=== PATIENT | female | born 1980 | race Two or more races ===

== ENCOUNTER 2019-11-28 09:00 | Inpatient (IN) | payer OTHER ==
[2019-11-26 17:52] LABS: APPEARANCE,URINE CLEAR; BILIRUBIN, URINE NEGATIVE (NEGATIVE); COLOR,URINE PALE YELLOW; GLUCOSE, URINE (UA) NEGATIVE (NEGATIVE); KETONES,URINE NEGATIVE (NEGATIVE); LEUKOCYTE ESTERASE ,URINE NEGATIVE (NEGATIVE); NITRITE,URINE NEGATIVE (NEGATIVE); PH,URINE 6 (4.5-8.0); PROTEIN,URINE NEGATIVE (NEGATIVE); UROBILINOGEN,URINE NORMAL MG/DL (0.0-1.0)
[~2019-11-28] VITALS: Ht 160 cm; Wt 95.3 kg
[2019-11-28] MEDS ORDERED: AMOXICILLI250 MG/5 M ORAL (14:47)
[2019-11-28] MEDS ORDERED: IBUPROFEN600 MG ORAL (14:48)
[2019-11-29] VITALS (15 sets, daily range): BP systolic 107–149; BP diastolic 57–91
[2019-11-29] MEDS ORDERED: ceFAZolin sod 2 GM in D5W 110 ML IVPB ONE (07:00)
--- NOTE | 2019-11-29 07:27 | Pre-Procedure Note/Attestation ---
Pre-Procedure Note/Attestation Complete Prior to Procedure Planned Procedure: not applicable Procedure Narrative: Right microdiscectomy hemilaminotomy Lumbar 45, 5S1 Attestation I attest that I discussed the nature of the procedure; its benefits; risks and complications; and alternatives (and the risks and benefits of such alternatives ), prior to the procedure, with the patient (or the patient's legal dental detail representative). I attest that, if there was a reasonable possibility of needing a blood transfusion, the patient (or the patient's legal dental detail representative) was given the [facility] standardized written summary, pursuant to the [place] Vern Blood Safety Act ([place] Health and Safety Code # 1645, as amended). I attest that I re-evaluated the patient just prior to the surgery and that there has been no change in the patient's H&P, except as documented below: Moises Brown MD Nov 29, 2019 07:27
[2019-11-29] MEDS ORDERED: NS w/KCl 20mEq 1000ml 1,000 ML IV SCH (07:40)
--- NOTE | 2019-11-29 07:40 | Brief Operative Note ---
Immediate Post Operative Note Operative Note Chief Complaint: back pain and radiculopathy Pre-op Diagnosis: hnp L45 5S1 Procedure: hemilaminotomy foraminotomy micrdiscectomy of Lumbar 45 5S1 Post-op Diagnosis: same as pre-op Findings: consistent w/pre-op dx studies Surgeon: Stephanie Instructor Painting: Frank Anesthesiologist: Pro Anesthesia: general Specimen: none Complications: none Condition: stable Fluids: IVF Estimated Blood Loss: minimal Drains: none Implant(s) used?: No Moises Brown MD Nov 29, 2019 07:40
[2019-11-29] MEDS ORDERED: Metoclopramide 10mg/2ml Inj IVP PRN ×2 (07:45→10:00)
[2019-11-29] MEDS ORDERED: HYDROcodone/Acetamin 7.5/325 tab ORAL PRN ×2 (07:45→10:00)
[2019-11-29] MEDS ORDERED: Morphine Sulfate 2mg/ml Inj(IV/IM USE ONLY) IV PRN ×2 (07:45→15:00)
[2019-11-29] MEDS ORDERED: HYDROmorphone 1mg/ml Carpuject IVP PRN (07:45)
[2019-11-29] MEDS ORDERED: Naloxone 0.4mg/ml Inj IVP PRN (07:45)
[2019-11-29] MEDS ORDERED: Milk of Magnesia 30ml Ud ORAL PRN (07:45)
[2019-11-29] MEDS ORDERED: HYDROcodone/Acetamin 5/325 tab ORAL PRN ×2 (07:45→10:00)
[2019-11-29] MEDS ORDERED: Chloraseptic Spray 20mL Bottle ORAL PRN (07:45)
[2019-11-29] MEDS ORDERED: Morphine Sulfate 4mg/ml Inj (IV USE ONLY) IV PRN (07:45)
[2019-11-29] MEDS: Docusate 100mg cap ORAL SCH ×2 (09:00→18:19)
[2019-11-29] MEDS ORDERED: LR 1000ml 1,000 ML IVLG SCH (09:57)
[2019-11-29] MEDS ORDERED: Sterile Water Irrig 1000ml IRRIG ONE (10:00)
[2019-11-29] MEDS ORDERED: LORazepam Inj 2mg/ml 1ml IV PRN (10:00)
[2019-11-29] MEDS ORDERED: Labetalol 5mg/ml 20ml vial IV PRN (10:00)
[2019-11-29] MEDS ORDERED: NS Irrig 1000ml ONE (10:00)
[2019-11-29] MEDS ORDERED: Neostigmine 1mg/ml 10ml Inj ONE (10:00)
[2019-11-29] MEDS ORDERED: LR 1000ml ONE (10:00)
[2019-11-29] MEDS ORDERED: Midazolam 2mg/2ml Inj IVP PRN (10:00)
[2019-11-29] MEDS ORDERED: Atropine Sulfate 0.4mg/ml inj IVP PRN (10:00)
[2019-11-29] MEDS ORDERED: oxyCODONE HCL/Acetaminophen 5/325mg ORAL PRN (10:00)
[2019-11-29] MEDS ORDERED: fentaNYL 100 mcg/2 mL IV PRN (10:00)
[2019-11-29] MEDS ORDERED: DiphenhydrAMINE 50mg/ml Inj IVP PRN (10:00)
[2019-11-29] MEDS ORDERED: Ketorolac 30mg Inj IV PRN ×2 (10:00)
[2019-11-29] MEDS ORDERED: Meperidine 25mg/0.5ml Inj (FOR RIGORS ONLY) IV PRN (10:00)
[2019-11-29] MEDS ORDERED: Hydromorphone 0.5mg/0.5ml inj IVP PRN (10:00)
[2019-11-29] MEDS ORDERED: Acetaminophen (Non formulary) 100 ML IV ONE (10:00)
[2019-11-29] MEDS ORDERED: Propofol 1,000mg/ 100ml btl IV ONE (10:00)
--- NOTE | 2019-11-29 10:04 | Anethesia Preoperative Eval ---
Anesthesia Pre-op PMH/ROS General Date of Evaluation: Nov 29, 2019 Time of Evaluation: 10:02 Anesthesiologist: Terrence ASA Score: ASA 2 Mallampati Score Class I : Soft palate, uvula, fauces, pillars visible Class II: Soft palate, uvula, fauces visible Class III: Soft palate, base of uvula visible Class IV: Only hard plate visible Mallampati Classification: Class II Surgeon: Stephanie Diagnosis: Back Pain Surgical Procedure: R Microdiscectomy, Hemilaminotomy L4-5, S1 Anesthesia History: none Family History: no anesthesia problems Allergies: Coded Allergies: No Known Allergies (Unverified , 11/29/19) Medications: see eMAR Patient NPO?: Yes NPO Date: Nov 28, 2019 NPO Time: 2099 Past Medical History Cardiovascular: Reports: HTN Neurologic/Psychiatric: Reports: depression/anxiety Other: obesity - BMI 39 PSxH Narrative: Tubal Ligation, Abdominoplasty Anesthesia Pre-op Phys. Exam Physician Exam Last Vital Signs Date Time Temp Pulse Resp B/P (MAP) Pulse Ox O2 Delivery O2 Flow Rate FiO2 11/29/19 08:06 97.7 66 18 107/75 (86) 98 11/29/19 08:04 Room Air Constitutional: NAD Neurologic: CN 2-12 intact Cardiovascular: RRR Respiratory: CTA Gastrointestinal: S/NT/ND Airway Exam Mallampati Score: Class II MO: full ROM: limited Teeth: missing, intact Anesthesia Pre-op A/P Labs Urine Test Test 11/29/19 07:35 Urine HCG, Qualitative Negative (NEGATIVE) Risk Assessment & Plan Assessment: ASA 2 Plan: GA, SED, GlideScope Go Status Change Before Surgery: No Pre-Antibiotics Dru Grams Ancef IV Given Within 1 Hr of Incision: Yes Time Given: 10:31 Wang Ocampo MD Nov 29, 2019 10:04
--- NOTE | 2019-11-29 10:04 | Immediate Post-Op Evaluation ---
Immediate Post-Op Evalulation Immediate Post-Op Evalulation Procedure: R Microdiscectomy, Hemilaminotomy L4-5, S1 Date of Evaluation: Nov 29, 2019 Time of Evaluation: 12:49 IV Fluids: 1000LR Blood Products: 0 Estimated Blood Loss: 40 Urinary Output: 0 Blood Pressure Systolic: 141 Blood Pressure Diastolic: 91 Pulse Rate: 88 Respiratory Rate: 16 O2 Sat by Pulse Oximetry: 100 Temperature (Fahrenheit): 97.1 Pain Score (1-10): 2 Nausea: No Vomiting: No Complications 0 Patient Status: awake, reacts, patent, extubated, none Hydration Status: adequate Dru Grams Ancef IV Given Within 1 Hr of Incision: Yes Time Given: 10:31 Wang Ocampo MD Nov 29, 2019 10:04
[2019-11-29] MEDS ORDERED: Rocuronium Bromide 50mg/5ml Inj IV ONE (10:07)
[2019-11-29] MEDS ORDERED: Ropivacaine 5mg/ml Vial 20ml INJ ONE (10:09)
[2019-11-29] MEDS ORDERED: Bacitracin 50000 Units Vial ONE (10:09)
[2019-11-29] MEDS ORDERED: Gelfoam Size TOPIC ONE (10:09)
[2019-11-29] MEDS ORDERED: Vancomycin 1gm vial IVPB ONE (10:09)
[2019-11-29] MEDS ORDERED: Thrombin 5000 units TOPIC ONE (10:09)
[2019-11-29] MEDS ORDERED: Lidocaine 1% Plain 30 ml INJ ONE (10:16)
[2019-11-29] MEDS ORDERED: Lidocaine 1% MPF 10mg/ml 5ml ONE (10:18)
[2019-11-29] MEDS ORDERED: Sodium Chloride 10ml vial INJ ONE (10:18)
[2019-11-29] MEDS ORDERED: fentaNYL 100 mcg/2 mL IV ONE (10:22)
[2019-11-29] MEDS ORDERED: Glycopyrrolate 0.2mg/ml 1ml Vial ONE ×2 (11:29→11:35)
[2019-11-29] MEDS: Dexamethasone 4mg/ml vial IVP SCH ×2 (12:00→18:19)
--- NOTE | 2019-11-29 15:27 | Diagnostic Imaging Report ---
Indication: Intraoperative imaging COMPARISON: None FINDINGS: Multiple crosstable fluoroscopic images of the lower lumbar spine were obtained intraoperatively. Localization of L4-5 and then L5-S1 demonstrated. IMPRESSION: Intraoperative imaging as described above
--- NOTE | 2019-11-29 15:32 | 48 Hour Post Anesthesia Eval ---
Post Anesthesia Evaluation Procedure: R Microdiscectomy, Hemilaminotomy L4-5, S1 Date of Evaluation: Nov 29, 2019 Time of Evaluation: 15:32 Blood Pressure Systolic: 113 0: 64 Pulse Rate: 57 Respiratory Rate: 14 Temperature (Fahrenheit): 97.5 O2 Sat by Pulse Oximetry: 98 Airway: patent Nausea: No Vomiting: No Pain Intensity: 3 Mental Status/LOC: patient returned to baseline Post-Anesthesia Complications: none Follow-up care needed: N/A Vanessa Meneses CRNA Nov 29, 2019 15:32
[2019-11-29] MEDS ORDERED: AMOXIL250 MG ORAL (16:10)
[2019-11-29] MEDS ORDERED: CARISOPRODOL350 MG ORAL (16:10)
[2019-11-29] MEDS: NS w/KCl 20mEq 1000ml 1,000 ML IV SCH (16:26)
--- NOTE | 2019-11-29 17:31 | General Progress Note ---
Assessment/Plan Assessment/Plan: hnp L45 5S1 hemilaminotomy foraminotomy of Lumbar 45 5S1 PLAN 1. incentive spirometry 2. SCD 3. PT evaluation and therapy 4. Hydration 5. Pain management 6. discharge once stable with outpatient follow up Subjective Allergies: Coded Allergies: No Known Allergies (Unverified , 11/29/19) Subjective asked to follow Objective Last 24 Hour Vital Signs Date Time Temp Pulse Resp B/P (MAP) Pulse Ox O2 Delivery O2 Flow Rate FiO2 11/29/19 16:00 97.6 85 16 119/79 (92) 98 11/29/19 15:32 57 14 98 11/29/19 14:45 97.3 87 16 121/79 (93) 97 11/29/19 14:15 97.4 82 16 121/78 (92) 97 11/29/19 13:46 97.2 11/29/19 13:45 73 13 113/64 100 Nasal Cannula 3 11/29/19 13:40 73 14 107/68 100 Nasal Cannula 3 11/29/19 13:30 70 12 113/68 100 Nasal Cannula 3 11/29/19 13:20 69 14 114/68 100 Nasal Cannula 3 11/29/19 13:10 79 18 128/74 98 Nasal Cannula 3 11/29/19 13:00 71 17 128/81 100 Nasal Cannula 3 11/29/19 12:55 70 15 129/81 100 Simple Mask 6 11/29/19 12:45 70 16 134/83 100 Simple Mask 6 11/29/19 12:40 75 15 137/57 100 Simple Mask 6 11/29/19 12:34 88 16 100 11/29/19 11:34 97.1 79 14 149/91 100 Simple Mask 6 11/29/19 08:06 97.7 66 18 107/75 (86) 98 11/29/19 08:04 Room Air Laboratory Tests 11/29/19 07:35: Urine HCG, Qualitative Negative Height (Feet): 5 Height (Inches): 3.00 Weight (Pounds): 210 Objective WDWN NAD clear breath sounds bilaterally without rhonchi or wheeze [id number] without MRG NABS nontender no HSM no CCE nonfocal Hermann Isaac MD Nov 29, 2019 17:31
[2019-11-29] MEDS: ceFAZolin sod 1 GM in D5W 55 ML IV SCH (18:18)
[2019-11-29] MEDS: HYDROcodone/Acetamin 7.5/325 tab ORAL PRN (18:28)
[2019-11-29] MEDS: Morphine Sulfate 4mg/ml Inj (IV USE ONLY) IV PRN (19:59)
[2019-11-30] VITALS: BP 128/82
[2019-11-30] MEDS: Dexamethasone 4mg/ml vial IVP SCH ×2 (00:22→06:22)
[2019-11-30] MEDS: ceFAZolin sod 1 GM in D5W 55 ML IV SCH ×2 (02:30→10:07)
[2019-11-30] MEDS: NS w/KCl 20mEq 1000ml 1,000 ML IV SCH ×2 (02:30→12:00)
[2019-11-30] MEDS: Morphine Sulfate 4mg/ml Inj (IV USE ONLY) IV PRN (03:27)
[2019-11-30 04:00] VITALS: BP 123/76
[2019-11-30 08:00] VITALS: BP 110/65
--- NOTE | 2019-11-30 08:51 | General Progress Note ---
Assessment/Plan Assessment/Plan: hnp L45 5S1 hemilaminotomy foraminotomy of Lumbar 45 5S1 PLAN 1. incentive spirometry 2. SCD 3. PT evaluation and therapy 4. Hydration 5. Pain management 6. discharge once cleared by surgery Subjective Allergies: Coded Allergies: No Known Allergies (Unverified , 11/29/19) Subjective asked to follow Objective Last 24 Hour Vital Signs Date Time Temp Pulse Resp B/P (MAP) Pulse Ox O2 Delivery O2 Flow Rate FiO2 11/30/19 04:00 97.6 67 18 123/76 (92) 97 11/30/19 00:00 97.7 78 18 128/82 (97) 95 11/29/19 21:00 Room Air 11/29/19 20:00 98.1 93 18 134/79 (97) 95 11/29/19 16:00 97.6 85 16 119/79 (92) 98 11/29/19 15:32 57 14 98 11/29/19 14:45 97.3 87 16 121/79 (93) 97 11/29/19 14:15 97.4 82 16 121/78 (92) 97 11/29/19 13:46 97.2 11/29/19 13:45 73 13 113/64 100 Nasal Cannula 3 11/29/19 13:40 73 14 107/68 100 Nasal Cannula 3 11/29/19 13:30 70 12 113/68 100 Nasal Cannula 3 11/29/19 13:20 69 14 114/68 100 Nasal Cannula 3 11/29/19 13:10 79 18 128/74 98 Nasal Cannula 3 11/29/19 13:00 71 17 128/81 100 Nasal Cannula 3 11/29/19 12:55 70 15 129/81 100 Simple Mask 6 11/29/19 12:45 70 16 134/83 100 Simple Mask 6 11/29/19 12:40 75 15 137/57 100 Simple Mask 6 11/29/19 12:34 88 16 100 11/29/19 11:34 97.1 79 14 149/91 100 Simple Mask 6 Intake and Output 11/29/19 11/30/19 19:00 07:00 Intake Total 1600 ml 1350 ml Output Total 250 ml Balance 1350 ml 1350 ml Intake Oral 250 ml 150 ml IV Total 1350 ml 1200 ml Output Urine Total 200 ml Estimated Blood Loss 50 ml # Voids 2 4 Height (Feet): 5 Height (Inches): 3.00 Weight (Pounds): 210 Objective WDWN NAD clear breath sounds bilaterally without rhonchi or wheeze [id number] without MRG NABS nontender no HSM no CCE nonfocal Hermann Isaac MD Nov 30, 2019 08:51
[2019-11-30] MEDS: Docusate 100mg cap ORAL SCH (09:25)
[2019-11-30] MEDS: HYDROcodone/Acetamin 7.5/325 tab ORAL PRN ×2 (10:06→14:51)
[2019-11-30 12:00] VITALS: BP 112/76
--- NOTE | 2019-11-30 13:00 | Discharge Summary ---
DATE OF ADMISSION: 11/29/2019 DATE OF DISCHARGE: 11/30/2019 PROCEDURE PERFORMED DURING ADMISSION: Microdiscectomy, hemilaminotomy at L4-L5 and L5-S1. REASON FOR ADMISSION: Herniated disc at L4-L5 and L5-S1. HOSPITAL COURSE/TREATMENT RENDERED: DISCHARGE PHYSICAL EXAMINATION: 1. Patient was ambulating with and without the assistance of physical therapy. 2. Prior to discharge home incision was clean and dry with minimal swelling. 3. Follows commands. 4. Alert and oriented. 5. Mcmillan discontinued, voiding. 6. Incentive spirometer at bedside. 7. IVF hep locked. MOTOR: Demonstrates expected postoperative bulk and tone. Moves biceps, triceps, and deltoid musculature on command. Moves hip flexors, quadriceps, tibialis anterior, EHL, gastrocsoleus musculature on command as well. TREATMENT RENDERED: 1. Daily nursing care. 2. Physical Therapy. 3. Occupational Therapy. 4. Intravenous medications. 5. Oral medications. 6. Daily postoperative examinations by Spine surgery team. CONDITION OF PATIENT ON DISCHARGE: The condition on discharge is stable for discharge to home. DISCHARGE INSTRUCTIONS: Our specific instructions relating to physical activity, medications, diet, and followup care are detailed in our standard operative folder and were given to this patient prior to surgery. We will however summarize these briefly as stated below. Regarding physical activity, we would like the patient to limit their flexion, extension, and rotation. We also require a limitation on their bending, lifting, and twisting. All medication has been called in prior to surgery to their pharmacy of choice. They can resume their regular diet once tolerated. We would like them to shower and limit soaking the wound in a tub/Jacuzzi/the ocean for a period of one month or until the incision is completely healed. We will have them follow up in our office in three weeks' time for their regularly scheduled appointment. They understand to call our office tomorrow to schedule the time for their three week followup appointment. The patient will notify us should they experience any increase in the severity of pain, redness/swelling/ or drainage from their incision. Moises Brown M.D. DR: MARLEY JOB#: [id number] CC:
[2019-11-30] MEDS ORDERED: ACETAMINOPHEN-1 EAC1 ORAL (15:49)
--- NOTE | 2019-12-10 16:30 | Operative Note - Dictated ---
DATE OF OPERATION: 11/29/2019 SURGEON: Moises Brown M.D., Orthopaedic Spine Surgeon. OIL REFINERY OPERATOR: Manuel Paz, physician economic research assistant. ANESTHESIA: General endotracheal anesthesia. PREOPERATIVE DIAGNOSES: 1. Intractable back pain. 2. Intractable leg pain. 3. Worsening radiculopathy. 4. Weakness. 5. Herniated nucleus pulposus, L4-L5 and L5-S1, herniation. 6. Neural foraminal stenosis, L4-L5 and L5-S1. POSTOPERATIVE DIAGNOSES: 1. Intractable back pain. 2. Intractable leg pain. 3. Worsening radiculopathy. 4. Weakness. 5. Herniated nucleus pulposus, L4-L5 and L5-S1, herniation. 6. Neural foraminal stenosis, L4-L5 and L5-S1. PROCEDURES PERFORMED: 1. Right-sided L4-L5 and L5-S1 microdiscectomy. 2. L4-L5 and L5-S1 hemilaminotomy, foraminotomy, and medial facetectomy. 3. L4-L5 and L5-S1 neural foraminotomy through a transpedicular intraforaminal approach. 4. Use of intraoperative microscope. 5. Supervision and interpretation of intraoperative fluoroscopy. 6. Supervision and interpretation of somatosensory-evoked potential and free-running EMG monitoring. ESTIMATED BLOOD LOSS: Less than 100 mL. COMPLICATIONS: None. INDICATIONS FOR THE PROCEDURE: The patient presents for intractable back pain and radiculopathy. The patient tried and failed a prolonged course of conservative management, including but not limited to chiropractic therapy, physical therapy, nonsteroidal anti-inflammatory drugs, medication, ice packs as well as epidural injection. Despite these therapies, the patient still developed recalcitrant pain and elected for definitive management in the form of right-sided L4-L5 and L5-S1 microdiscectomy; L4-L5 and L5-S1 hemilaminotomy, foraminotomy, and medial facetectomy; L4-L5 and L5-S1 neural foraminotomy through a transpedicular intraforaminal approach. CONSENT: We had a long discussion with the patient regarding definitive surgical treatment options. The patient's MRI demonstrated herniated nucleus pulposus at L4-L5 and L5-S1, herniation, neural foraminal stenosis at L4-L5 and L5-S1, and as a result, I felt the patient would benefit from the discectomy as well as neural foraminotomy at this level. We had a long discussion with the patient regarding the risks, alternatives, and benefits of surgery. Our description of the risks included a discussion in person as well as a signed consent, which detailed all pertinent risks and the procedure itself. Briefly, our discussion included but was not limited to infection, bleeding, pseudarthrosis, spinal cord injury, neurovascular injury, dural tear, CSF leak, neuropathy, paralysis, permanent weakness/drop foot, paresthesias, blindness, palsy, and weakness. The patient understood there may be a need for revision surgery or additional procedures. Approach-related complications including dysphonia, dysphagia, blindness, permanent vocal cord and neural injury, hematoma, swallowing and breathing difficulty. Medical complications including liver, kidney, shock, and cardiopulmonary failure. Anesthesia complications including and swelling. Damage to the musculature, larynx (voice injury or loss),esophagus (throat), trachea, blood vessels and muscles (muscular sprain) and lungs (pneumothorax) during this surgical procedure. Injury to deeper structures may be temporary or permanent. The patient understood these and elected to proceed. A written and verbal consent was given. We discussed the pros and cons of all the alternatives. We discussed the uncertainties associated with the decision. Afterwards, I assessed the patient's understanding and explored their preferences. All questions were answered and no guarantees were given. Medical clearance was obtained prior to surgery OPERATIVE FINDINGS: L4-L5; at L4-L5, once the thecal sac was mobilized, there was a tear in the posterior longitudinal ligament approximately 10 degrees cephalad to caudad. Through this tear, I have noticed migration of nucleus pulposus tissue posteriorly, which was obviously encroaching on the thecal sac and neural foramina where the nerve lays. This disc herniation was soft, not calcified or crumbled. It was rather spongy and was easily resected with a combination of a 15 blade, narrow pituitaries, and arthroscopic pituitaries. After complete decompression, the neural foramen was thoroughly decompressed allowing no more impingement on the neural elements therein. L5-S1; at L5-S1, I also encountered another disc herniation, this exquisitely encroaching through a tear in the posterior longitudinal ligament, which was approximately vertical cephalad to caudad almost. I could see posterior longitudinal ligament torn in a book fashion opened in a figure . The edge of the posterior longitudinal ligament was probed with a Microsect curette and this allowed retrieval of the entire nuclear tissue, which was protruding posteriorly. This was resected with a combination of 15 blade, narrow pituitaries, arthroscopic pituitaries, and 1.5 mm pituitary with teeth until a complete decompression of the entire thecal sac and neural foramen was allowed for. DESCRIPTION OF PROCEDURE: Under the benefit of general endotracheal anesthesia and with the assistance of the entire operative team, the patient was moved from the rpipestem onto the operative table in the prone position on a Declan frame. The head was secured and positioned appropriately. Bilateral arms were secured with Gel Pads and foam and all bony prominences were padded. The bilateral lower extremity SCD and CHAIM hose were placed for DVT prophylaxis. A surgical timeout was called, which corroborated our planned procedure. Preoperative antibiotics were administered within 30 minutes of the incision for prophylaxis. Decadron was given for preoperative steroids. Using lateral radiography, the operative levels were delineated. An incision was marked based on our interpretation of lateral radiography and afterwards, the body was prepped and draped in the usual sterile manner. The family was notified that we were ready to commence surgery and were called in the waiting room hourly for updates. An incision was based on our lateral fluoroscopic image to center the incision at the L5-S1 interspace. The wound was prepped and draped in the usual sterile fashion. Using a scalpel, a midline incision was taken down through the skin and subcutaneous tissues until the overlying hemilaminae of L4-L5 and L5-S1 were visualized. Next, using meticulous hemostasis, hemilaminotomies were dissected and retractors were placed. Using a Сергей dental, we confirmed placement at the L4-L5 and L5-S1 interspace. We next turned our attention to our decompression. A standard hemilaminotomy, foraminotomy, and medial facetectomy was performed at each level in standard fashion using a Midas-Beto type AM8 drill bit, straight and angled curettage, and Kerrison 4 rongeurs until the lateral thecal sac margin and traversing nerve root was visualized. All remainders of the ligamentum flavum and lateral bony margins were resected in total with angled curettage and Kerrison 4 rongeurs until the lateral thecal sac margin and traversing nerve root was visualized and decompressed. We next turned our attention toward our L4-L5 and L5-S1 microdiscectomy on the right side. A [place] 4 was used to gently mobilize the thecal sac medially and this was held retracted with a bayonetted nerve root retractor. It was at this point that we noted a large broad-based disc protrusion with encroachment dorsally on the thecal sac and neural foraminal contents. A bayonet and nerve root retractor was then placed carefully to retract the thecal sac and a discectomy was performed using a combination of a long-handled 15 blade scalpel, downgoing and straight pituitaries, and downgoing curettage. Afterwards, the disc space was irrigated twice with 20 mL of antibiotic-impregnated saline. All loose and free-floating disc fragments were carefully resected with a narrow pituitary. Having been satisfied with our decompression after our discectomy of all neural elements, we next turned our attention to our neural foraminoplasty/foraminotomy. This was performed through a transpedicular intraforaminal approach using an access probe followed by a neuro-check device, which confirmed ventral placement of our nerve root. Once we confirmed we were safe, we next turned our attention towards placement of our size 10 file under direct microscopic visualization and under lateral fluoroscopy. Using pre- and post-reciprocation imaging, we were able to visualize our direct decompression given the reciprocation allowed for re-creation of the neural foraminal arch at L4-L5 and L5-S1. Afterwards, hemostasis was obtained with 60 mL of antibiotic-impregnated saline followed by FloSeal and Gelfoam. After sponge and needle count were found to be correct, we next turned our attention to closure. Closure consisted of 1-0 Vicryl in standard interrupted fashion. Zosyn was placed deep to the fascia and superficial to the fascia for antibiotic prophylaxis. Skin closure was performed with 2-0 Vicryl in interrupted fashion followed by a running Monocryl for the skin. Final dressings consisted of Dermabond for the superficial skin, Telfa, and Tegaderm. The patient tolerated the procedure well. The patient was extubated after the conclusion of surgery without incident. We discussed the findings of the surgery with the family upon completion of the case. At this point, the patient will be transferred to the spine floor for further observation. Moises Brown M.D. DR: MARLEY JOB#: [id number] CC:
== END 2019-11-30 16:30 | disposition home or self-care (01) | DRG 520 ==
LOC: SDSOVERFLO 11-29 07:18 → 3E 11-29 14:10
DX: M51.16 Intervertebral disc disorders with radiculopathy, lumbar region (principal); M51.27 Other intervertebral disc displacement, lumbosacral region; V89.2XXS Person injured in unspecified motor-vehicle accident, traffic, sequela; I10 Essential (primary) hypertension; F41.8 Other specified anxiety disorders
CPT/HCPCS: 36415; 72020; 76000; 81001; 81025; 86850; 86900; 86901; 87081; 87086; 94003; 94150; J2180; J2405; J2710; J2765; J2795